=== PATIENT | male | born 1985 | race African-American/Black ===

== ENCOUNTER 2017-02-09 03:43 | Emergency (ER) | payer SELFPAY ==
[~2017-02-09] VITALS: Ht 182.9 cm; Wt 84.5 kg
[2017-02-09] MEDS ORDERED: PROPARACAINE HCL 0.5% 15 ML OPHTHALMIC SOLUTION OD ONE (04:30)
[2017-02-09 05:05] VITALS: BP 142/92
== END 2017-02-09 05:18 | disposition home or self-care (01) ==
LOC: EMS 03:44
DX: S05.01XA Injury of conjunctiva and corneal abrasion without foreign body, right eye, initial encounter (principal); F17.210 Nicotine dependence, cigarettes, uncomplicated; F12.90 Cannabis use, unspecified, uncomplicated; W50.4XXA Accidental scratch by another person, initial encounter; Y93.89 Activity, other specified; Y92.89 Other specified places as the place of occurrence of the external cause; Y99.8 Other external cause status
CPT/HCPCS: 99173; 99283; 99406

== ENCOUNTER 2017-12-22 09:12 | Emergency (ER) | payer SELFPAY ==
[~2017-12-22] VITALS: Ht 182.9 cm; Wt 78.2 kg
[2017-12-22] MEDS ORDERED: AZITHROMYCIN 250 MG TABLET PO ONE (10:30)
[2017-12-22] MEDS ORDERED: CefTRIAXone SODIUM 1 GM/VIAL IM ONE ×2 (10:30→10:45)
[2017-12-22] MEDS ORDERED: MetroNIDAZOLE 500 MG TABLET PO ONE (10:45)
[2017-12-22] MEDS ORDERED: LIDOCAINE HCL 1% 10 ML VIAL ONE (10:58)
[2017-12-22 11:25] VITALS: BP 137/89
== END 2017-12-22 11:27 | disposition home or self-care (01) ==
LOC: EMS 09:13
DX: A64 Unspecified sexually transmitted disease (principal); F12.90 Cannabis use, unspecified, uncomplicated; F17.210 Nicotine dependence, cigarettes, uncomplicated
CPT/HCPCS: 96372; 99283; J0696; J3490

== ENCOUNTER 2022-06-26 12:53 | Emergency (ER) | payer MEDICAID ==
[~2022-06-26] VITALS: Ht 185.4 cm; Wt 90.9 kg
[2022-06-26 12:59] VITALS: BP 144/81
== END 2022-06-26 14:45 | disposition home or self-care (01) ==
LOC: EMS 12:58
DX: R20.2 Paresthesia of skin (principal); F17.210 Nicotine dependence, cigarettes, uncomplicated; F12.90 Cannabis use, unspecified, uncomplicated; Z98.890 Other specified postprocedural states
CPT/HCPCS: 99281; Z7502

== ENCOUNTER 2022-12-26 09:52 | Emergency (ER) | payer MEDICAID, OTHER ==
[~2022-12-26] VITALS: Ht 180.3 cm; Wt 93.2 kg
[2022-12-26 09:59] VITALS: BP 150/89
[2022-12-26 10:34] LABS: APPEARANCE,URINE HAZY (CLEAR); BILIRUBIN,URINE NEGATIVE (NEGATIVE); GLUCOSE, URINE (UA) NEGATIVE (NEGATIVE); KETONES,URINE NEGATIVE (NEGATIVE); LEUKOCYTE ESTERASE ,URINE LARGE (NEGATIVE); NITRATE,URINE NEGATIVE (NEGATIVE); OCCULT BLOOD,URINE SMALL (NEGATIVE); PH,URINE 5.5 (5.0-8.0); PROTEIN,URINE NEGATIVE (NEGATIVE); SPECIFIC GRAVITIY, URINE 1.023 (1.003-1.030); UROBILINOGEN,URINE <=1.0 mg/dL (<=1.0)
[2022-12-26 10:40] LABS: BACTERIA,URINE Few /HPF (None Seen); WBC,URINE 51-100 /HPF (0-5)
[2022-12-26] MEDS ORDERED: LIDOCAINE/PF 1% 2 ML VIAL IM ONE (11:45)
[2022-12-26] MEDS ORDERED: CefTRIAXone SODIUM 1 GM/VIAL IM ONE (11:45)
[2022-12-26] MEDS ORDERED: DOXY-354 PO (12:36)
== END 2022-12-26 12:49 | disposition home or self-care (01) ==
LOC: EMS 09:54
DX: A64 Unspecified sexually transmitted disease (principal); F12.90 Cannabis use, unspecified, uncomplicated; F17.210 Nicotine dependence, cigarettes, uncomplicated; Z98.890 Other specified postprocedural states
CPT/HCPCS: 99283; 81001; 87086; 87186; 87491; 87591; 96372; J0696; J3490

== ENCOUNTER 2023-04-16 10:16 | Emergency (ER) | payer OTHER ==
[~2023-04-16] VITALS: Ht 182.9 cm; Wt 86.4 kg
[~2023-04-16 10:16] MED LIST: DOXY-354 PO
[2023-04-16 10:27] VITALS: TEMP 100
[2023-04-16] MEDS ORDERED: AMOX TR/POT CLAV 875 MG/125 MG TABLET PO ONE (11:30)
[2023-04-16] MEDS ORDERED: IBUPROFEN 600 MG TABLET PO ONE (11:30)
[2023-04-16] MEDS ORDERED: PERTUSS(ACELL),DIPH,TET VAC/PF 0.5 ML SYRINGE IM. ONE (11:30)
[2023-04-16] MEDS ORDERED: NEOMYCIN/BACITRACIN/POLYMYXIN B OINTMENT PACKET TP ONE (11:30)
[2023-04-16 12:30] VITALS: BP 122/84; PULSE 84; RESP 18
[2023-04-16] MEDS ORDERED: AMOX1TAB16 PO (12:35)
== END 2023-04-16 12:52 | disposition home or self-care (01) ==
LOC: EMS 10:20
DX: S61.551A Open bite of right wrist, initial encounter (principal); F17.210 Nicotine dependence, cigarettes, uncomplicated; F12.90 Cannabis use, unspecified, uncomplicated; Z98.890 Other specified postprocedural states; W54.0XXA Bitten by dog, initial encounter; Y93.89 Activity, other specified; Y92.89 Other specified places as the place of occurrence of the external cause; Y99.8 Other external cause status
CPT/HCPCS: 90471; 90715; 99284

== ENCOUNTER 2023-08-24 13:57 | Emergency (ER) | payer MEDICAID, OTHER ==
[~2023-08-24] VITALS: Ht 184.2 cm; Wt 80.9 kg
[~2023-08-24 13:57] MED LIST changes: +AMOX1TAB16 PO; -DOXY-354 PO
[2023-08-24 14:30] VITALS: BP 107/69; PULSE 68; RESP 16; TEMP 97.8
[2023-08-24 14:50] LABS: COVID AG,FIA SOURCE NASAL SWAB
[2023-08-24 15:23] LABS: SARS-COV2 (COVID) ANTIGEN,FIA Negative (Negative)
== END 2023-08-24 15:55 | disposition home or self-care (01) ==
LOC: EMS 13:58
DX: J06.9 Acute upper respiratory infection, unspecified (principal); F12.90 Cannabis use, unspecified, uncomplicated; F17.210 Nicotine dependence, cigarettes, uncomplicated; Z98.890 Other specified postprocedural states; Z20.822 Contact with and (suspected) exposure to COVID-19
CPT/HCPCS: 99283

== ENCOUNTER 2023-12-04 09:49 | Emergency (ER) | payer MEDICAID ==
[~2023-12-04] VITALS: Ht 182.9 cm; Wt 81.8 kg
[2023-12-04 09:51] VITALS: TEMP 98.1
[2023-12-04] MEDS: IBUPROFEN 600 MG TABLET PO ONE (12:27)
[2023-12-04] MEDS: METHOCARBAMOL 500 MG TABLET PO ONE (12:27)
[2023-12-04] MEDS ORDERED: IBUP-1492 PO (12:40)
[2023-12-04 13:06] VITALS: BP 140/86; PULSE 70; RESP 16
== END 2023-12-04 13:30 | disposition home or self-care (01) ==
LOC: EMS 09:49
DX: M25.511 Pain in right shoulder (principal); F17.210 Nicotine dependence, cigarettes, uncomplicated; F12.90 Cannabis use, unspecified, uncomplicated; Z98.890 Other specified postprocedural states
CPT/HCPCS: 99283

== ENCOUNTER 2024-09-05 17:47 | Emergency (ER) | payer MEDICAID ==
[~2024-09-05] VITALS: Ht 180.3 cm; Wt 84.0 kg
[~2024-09-05 17:47] MED LIST changes: -AMOX1TAB16 PO; +IBUP-1492 PO
[2024-09-05 17:57] VITALS: BP 145/87; PULSE 69; RESP 20; TEMP 98.6; O2SAT 99
[2024-09-05 18:34] LABS: ANION GAP 13 mmol/L (8-16); CALCIUM, TOTAL 8.9 mg/dL (8.8-10.5); CARBON DIOXIDE 23 mmol/L (22-29); CHLORIDE 102 mmol/L (98-107); CREATININE 1.19 mg/dL (0.60-1.30); EOSINOPHILS % (AUTO) 2.5 % (1.0-6.0); GLOMERULAR FILTR. RATE CALC > 60 mL/min (>60); GLUCOSE,RANDOM 88 mg/dL (70-110); HEMATOCRIT 44.5 % (41-53); HEMOGLOBIN 14.6 g/dL (13.5-17.5); MEAN CORPUSCULAR HEMOGLOBIN 29.4 pg (26.0-34.0); MEAN CORPUSCULAR HGB CONC 32.8 G/dL (31.0-37.0); MEAN CORPUSCULAR VOLUME 90 fL (80-100); MONOCYTES # (AUTO) 0.8 K/uL (0.1-1.0); MONOCYTES % (AUTO) 12.9 % (2.0-9.0); NEUTROPHILS # (AUTO) 2.2 K/uL (1.8-7.7); NEUTROPHILS % (AUTO) 35.6 % (40.0-70.0); PLATELET COUNT (AUTO) 297 K/uL (150-450); POTASSIUM 4.1 mmol/L (3.5-5.1); RED BLOOD CELL COUNT(AUTO) 4.96 MIL/uL (4.50-5.90); RED CELL DISTRIBUTION WIDTH 13.6 % (11.5-14.5); SODIUM SERUM 138 mmol/L (136-145); UREA NITROGEN, BLOOD 11 mg/dL (7-18); WHITE BLOOD COUNT (AUTO) 6.3 K/uL (4.5-11.0)
[2024-09-05 18:52] LABS: TROPONIN I-HIGH SENSITIVITY 4 ng/L (<76)
== END 2024-09-05 20:00 | disposition left against medical advice (07) ==
LOC: EMS 17:47
DX: R00.2 Palpitations (principal); Z53.21 Procedure and treatment not carried out due to patient leaving prior to being seen by health care provider
CPT/HCPCS: 71045; 80048; 84484; 85025; 93005; 36415-L1; 36415-TC

== ENCOUNTER 2025-02-10 11:22 | Emergency (ER) | payer MEDICAID ==
[~2025-02-10] VITALS: Ht 180.3 cm; Wt 81.8 kg
[2025-02-10 11:25] VITALS: BP 129/79; PULSE 70; RESP 20; TEMP 97.9; O2SAT 100
[2025-02-10 12:10] LABS: BASOPHILS % (AUTO) 1.2 % (0.0-2.0); HEMATOCRIT 39.5 % (41-53); LYMPHOCYTES # (AUTO) 3.5 K/uL (1.0-4.8); MEAN CORPUSCULAR HEMOGLOBIN 28.7 pg (26.0-34.0); MEAN CORPUSCULAR VOLUME 87 fL (80-100); MONOCYTES # (AUTO) 0.5 K/uL (0.1-1.0); MONOCYTES % (AUTO) 6.5 % (2.0-9.0); NEUTROPHILS % (AUTO) 40.3 % (40.0-70.0); PLATELET COUNT (AUTO) 290 K/uL (150-450); RED BLOOD CELL COUNT(AUTO) 4.55 MIL/uL (4.50-5.90); RED CELL DISTRIBUTION WIDTH 13.6 % (11.5-14.5); WHITE BLOOD COUNT (AUTO) 7.4 K/uL (4.5-11.0)
[2025-02-10 12:26] LABS: ANION GAP 6 mmol/L (8-16); CARBON DIOXIDE 26 mmol/L (22-29); CHLORIDE 109 mmol/L (98-107); CREATININE 1.09 mg/dL (0.60-1.30); GLOMERULAR FILTR. RATE CALC > 60 mL/min (>60); GLUCOSE,RANDOM 97 mg/dL (70-110); POTASSIUM 4.1 mmol/L (3.5-5.1); SODIUM SERUM 141 mmol/L (136-145); UREA NITROGEN, BLOOD 16 mg/dL (7-18)
[2025-02-10 12:29] LABS: ALBUMIN 3.8 g/dL (3.4-5.0); BILIRUBIN,DIRECT 0.1 mg/dL (0.00-0.20); BILIRUBIN,TOTAL 0.4 mg/dL (0.1-1.0); TOTAL PROTEIN, SERUM 6.7 g/dL (6.4-8.2)
[2025-02-10] MEDS ORDERED: MELA3TAB89 PO (12:36)
== END 2025-02-10 12:46 | disposition home or self-care (01) ==
LOC: EMS 11:25
DX: R53.1 Weakness (principal); G47.00 Insomnia, unspecified; F17.210 Nicotine dependence, cigarettes, uncomplicated; F12.90 Cannabis use, unspecified, uncomplicated; Z98.890 Other specified postprocedural states; Z79.1 Long term (current) use of non-steroidal anti-inflammatories (NSAID)
CPT/HCPCS: 80048; 80076; 82550; 85025; 99283

== ENCOUNTER 2025-05-12 09:00 | Emergency (ER) | payer SELFPAY ==
[~2025-05-12] VITALS: Ht 180.3 cm; Wt 79.5 kg
[~2025-05-12 09:00] MED LIST changes: +MELA3TAB89 PO
[2025-05-12 09:03] VITALS: TEMP 98.1
[2025-05-12 09:45] VITALS: BP 119/64; PULSE 61; RESP 17; O2SAT 99
[2025-05-12] MEDS: ACETAMINOPHEN 500 MG TABLET PO ONE (10:00)
[2025-05-12] MEDS: IBUPROFEN 600 MG TABLET PO ONE (10:00)
[2025-05-12 10:26] LABS: COVID AG,FIA SOURCE NASAL SWAB
[2025-05-12 10:48] LABS: RAPID GROUP A STREP NEGATIVE (NEGATIVE)
[2025-05-12 10:50] LABS: SARS-COV2 (COVID) ANTIGEN,FIA Negative (Negative)
[2025-05-12 10:51] LABS: INFLUENZA TYPE A NEGATIVE FOR TYPE A (NEGATIVE); INFLUENZA TYPE B NEGATIVE FOR TYPE B (NEGATIVE)
[2025-05-12] MEDS ORDERED: ACET-3385 PO (11:13)
[2025-05-12] MEDS ORDERED: IBUP-1492 PO (11:13)
== END 2025-05-12 11:31 | disposition home or self-care (01) ==
LOC: EMS 09:05
DX: B34.9 Viral infection, unspecified (principal); R05.9 Cough, unspecified; J02.9 Acute pharyngitis, unspecified; F17.210 Nicotine dependence, cigarettes, uncomplicated; F12.90 Cannabis use, unspecified, uncomplicated; Z98.890 Other specified postprocedural states; Z79.1 Long term (current) use of non-steroidal anti-inflammatories (NSAID); Z20.822 Contact with and (suspected) exposure to COVID-19
CPT/HCPCS: 87430; 87804; 99283